=== PATIENT | female | born 1945 | race American Indian/Alaskan Native ===

== ENCOUNTER 2016-07-30 14:54 | Emergency (ER) | payer MEDICARE ==
--- NOTE | 2016-07-30 19:46 | Emergency Department Report ---
HPI - General Chief Complaint: Extremity Problem,Nontraumatic Time Seen by Provider: 07/30/16 19:40 - HPI HPI: Pt is a 71-year-old female who presents to ED complaining of left buttock pain that is radiating down her anterior thigh to her knee. Patient states she's had dyspnea since last week. Patient states he began getting worse since Tuesday. Patient states she took a Tylenol with that given her some relief but not anymore.Patient denies any recent fall trauma. Patient denies calf pain bilaterally. She denies fevers/chills nausea vomiting abdominal pain chest pain shortness of breath or any other problems ED Past Medical Hx - Past Medical History Hx Hypertension: Yes Hx GERD: Yes Additional medical history: high cholesterol - Surgical History Past Surgical History?: No - Social History Smoking Status: Never Smoker Substance Use Type: None - Medications Home Medications: Home Medications Medication Instructions Recorded Confirmed Last Taken Type methOCARBAMOL [Robaxin TAB] 500 mg PO BID #14 tab 07/30/16 Unknown Rx traMADol [Ultram 50 MG tab] 50 mg PO Q6H #24 tablet 07/30/16 Unknown Rx ED Review of Systems ROS: Stated complaint: LT SIDE PAIN Other details as noted in HPI Constitutional: denies: chills, fever Eyes: denies: eye pain, eye discharge, vision change ENT: denies: ear pain, throat pain Respiratory: denies: cough, shortness of breath, wheezing Cardiovascular: denies: chest pain, palpitations Endocrine: no symptoms reported Gastrointestinal: denies: abdominal pain, nausea, diarrhea Genitourinary: denies: urgency, dysuria, discharge Musculoskeletal: denies: back pain, joint swelling, arthralgia Skin: denies: rash, lesions Neurological: denies: headache, weakness, paresthesias Psychiatric: denies: anxiety, depression Hematological/Lymphatic: denies: easy bleeding, easy bruising Physical Exam - Physical Exam Vital Signs: Vital Signs 07/30/16 15:21 Temperature 98.1 F Pulse Rate 90 Blood Pressure 175/88 O2 Sat by Pulse 100 Oximetry Physical Exam: GENERAL: Alert and oriented x3, no apparent distress, Normal Gait, atraumatic. She is ambulating normally HEAD: Head is normocephalic and a-traumatic. MOUTH:Mouth is well hydrated and without lesions. Patent airways. NECK: Supple. Non edematous, No carotid bruits. No lymphadenopathy or thyromegaly. LUNGS: Symetrical with respiration, No wheezing, no rales or crackles, CTAB. HEART: S1, S2 present, regular rate and rhythm without murmur, no rubs, no gallops. ABDOMEN: No organomegaly was noted,Positive bowel sounds, soft, and non- distended. . Nontender to palpation on all Quadrants, EXTREMITIES/MUSCULOSKELETAL: No cyanosis, clubbing, rash, lesions or edema. Full ROM bilaterally. UE Pulses 2+ bilaterally. LE and UE 5+ strength bilaterally. Straight leg raise positive on left. No calf tenderness bilaterally. No spine tenderness NEUROLOGIC: No focal Deficit, Cranial nerves II through XII are grossly intact. No loss of sensation PSYCHIATRIC: Mood is congruent with affect, denies suicidal or homicidal ideations. SKIN: Warm and dry, No lesions, No ulceration or induration present. ED Course Vital Signs 07/30/16 15:21 Temperature 98.1 F Pulse Rate 90 Blood Pressure 175/88 O2 Sat by Pulse 100 Oximetry ED Medical Decision Making - Medical Decision Making 71-year-old female presents with cervical scratch that lumbar radiculopathy ED course: Patient received tramadol 100 mg in ED. Discussed the patient in follow-up with Physician as referred for chronic pain management. Discuss to avoid sitting for long periods of time or standing for long period time if this aggravates the pain. Discussed the patient have worsening symptoms or new symptoms arise to return to ED. Vital signs are stable patient is ambulating normally and appropriately patient is not in any acute or respiratory distress Critical care attestation.: If time is entered above; I have spent that time in minutes in the direct care of this critically ill patient, excluding procedure time. ED Disposition Clinical Impression: Lumbar radiculopathy Disposition: DISCHARGED TO HOME OR SELFCARE Is pt being admited?: No Does the pt Need Aspirin: No Condition: Stable Instructions: Lumbar Radiculopathy (ED), Trigger Point Pain (ED), Heat Pack Application (ED) Additional Instructions: Apply heat to affected area. Avoid standing or sitting for long period of time Prescriptions: methOCARBAMOL [Robaxin TAB] 500 mg PO BID #14 tab traMADol [Ultram 50 MG tab] 50 mg PO Q6H #24 tablet Referrals: PRIMARY CARE, [Primary Care Provider] - 3-5 Days CATHIE RENDON MD [Referring] - 3-5 Days TIFFANIE CHAPIN MD [Staff Physician] - 3-5 Days GISSELLE DUDLEY MD [Staff Physician] - 3-5 Days [facility] [place] [Outside] - 3-5 Days Forms: Accompanied Note, Work/School Release Form(ED) Time of Disposition: 20:27
[2016-07-30] MEDS ORDERED: ULTRAM PO ONE (19:52)
[2016-07-30 21:08] VITALS: BP 162/83
== END 2016-07-30 20:30 | disposition home or self-care (01) ==
LOC: ED 14:54
DX: M54.16 Radiculopathy, lumbar region (principal); K21.9 Gastro-esophageal reflux disease without esophagitis; I10 Essential (primary) hypertension; E78.00 Pure hypercholesterolemia, unspecified
CPT/HCPCS: 99282